=== PATIENT | female | born 1970 | race Two or more races ===

== ENCOUNTER 2018-12-15 17:13 | Emergency (ER) | payer MEDICAID ==
[~2018-12-15] VITALS: Ht 162.6 cm; Wt 81.8 kg
[2018-12-15] MEDS ORDERED: BACITRACIN 0.9 GM PACKET OINTMENT TP ONE (19:45)
[2018-12-15] MEDS ORDERED: LIDOCAINE/PF 1% 5 ML VIAL INJ ONE (19:45)
[2018-12-15 20:53] VITALS: BP 141/85
== END 2018-12-15 20:53 | disposition home or self-care (01) ==
LOC: EMS 17:14
DX: S61.411A Laceration without foreign body of right hand, initial encounter (principal); W25.XXXA Contact with sharp glass, initial encounter; Y93.89 Activity, other specified; Y92.89 Other specified places as the place of occurrence of the external cause; Y99.8 Other external cause status
CPT/HCPCS: 12002; 73130; 99284; J2001

== ENCOUNTER 2021-12-22 09:15 | Emergency (ER) | payer MEDICAID, OTHER ==
[~2021-12-22] VITALS: Ht 167.6 cm; Wt 104.5 kg
[2021-12-22 09:41] VITALS: BP 140/78
== END 2021-12-22 13:14 | disposition home or self-care (01) ==
LOC: EMS 09:55
DX: I83.892 Varicose veins of left lower extremity with other complications (principal); F10.20 Alcohol dependence, uncomplicated
CPT/HCPCS: 99281; Z7502

== ENCOUNTER 2022-04-09 08:25 | Emergency (ER) | payer OTHER ==
[~2022-04-09] VITALS: Ht 165.1 cm; Wt 84.1 kg
[2022-04-09 08:26] VITALS: BP 135/83
[2022-04-09] MEDS ORDERED: KETOROLAC TROMETHAMINE 60 MG/2 ML VIAL IM ONE (10:30)
[2022-04-09] MEDS ORDERED: ACETAMINOPHEN/CODEINE 300-30 MG TABLET PO ONE (10:30)
[2022-04-09] MEDS ORDERED: ACET-2080 PO (12:29)
[2022-04-09] MEDS ORDERED: IBUP-1554 PO (12:29)
== END 2022-04-09 12:38 | disposition home or self-care (01) ==
LOC: EMS 08:30
DX: M25.561 Pain in right knee (principal); M17.11 Unilateral primary osteoarthritis, right knee; Z20.822 Contact with and (suspected) exposure to COVID-19
CPT/HCPCS: 99283; 29505; 73562; 96372; J1885

== ENCOUNTER 2024-12-11 13:50 | Emergency (ER) | payer OTHER ==
[~2024-12-11] VITALS: Ht 167.6 cm; Wt 98.0 kg
[~2024-12-11 13:50] MED LIST: ACET-2080 PO; IBUP-1554 PO
[2024-12-11 14:20] VITALS: TEMP 98.3
[2024-12-11] MEDS: KETOROLAC TROMETHAMINE 60 MG/2 ML VIAL IM ONE (16:32)
[2024-12-11] MEDS: ONDANSETRON HCL 4 MG/2 ML VIAL IM ONE (16:32)
[2024-12-11] MEDS ORDERED: METH-659 PO (20:01)
[2024-12-11] MEDS ORDERED: IBUP-1554 PO (20:01)
[2024-12-11] MEDS ORDERED: HYDR-4062 PO (20:01)
[2024-12-11 20:11] VITALS: BP 136/84; PULSE 84; RESP 16; O2SAT 98
== END 2024-12-11 20:12 | disposition home or self-care (01) ==
LOC: EMS 13:50
DX: S39.012A Strain of muscle, fascia and tendon of lower back, initial encounter (principal); M17.11 Unilateral primary osteoarthritis, right knee; G89.29 Other chronic pain; X58.XXXA Exposure to other specified factors, initial encounter; Y93.89 Activity, other specified; Y92.89 Other specified places as the place of occurrence of the external cause; Y99.8 Other external cause status
CPT/HCPCS: 99284; 72070; 72100; 73502; 96372; J1885; J1171; J2405